=== PATIENT | male | born 1955 | race Caucasian/White ===

== ENCOUNTER 2016-07-09 17:40 | Emergency (ER) | payer MEDICARE ==
[2016-07-09 19:25] LABS: Bilirubin Negative (Negative); Blood, Urine Negative (Negative); Clarity Clear (Clear); Glucose, Urine (Dipstick) Negative (Negative); Leukocyte Negative (Negative); Nitrite Negative (Negative); Protein, Urine (Dipstick) Negative (Neg-Trace); Urobilinogen 0.2 mg/dL (0.2-1.0)
[2016-07-09 19:26] LABS: Specific Gravity, Urine 1.022 (1.002-1.036)
[2016-07-09 19:30] LABS: RBC/HPF None Seen HPF (0-3); WBC/HPF 0-3 HPF (0-3)
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
== END 2016-07-09 19:57 | disposition home or self-care (01) ==
LOC: MADERS 17:40
DX: M54.32 Sciatica, left side (principal); I10 Essential (primary) hypertension; F17.220 Nicotine dependence, chewing tobacco, uncomplicated; Z79.891 Long term (current) use of opiate analgesic; Z79.899 Other long term (current) drug therapy
CPT/HCPCS: 81001; 99283

== ENCOUNTER 2017-12-30 17:49 | Emergency (ER) | payer MEDICARE, OTHER, MEDICAID ==
[2017-12-30 19:10] LABS: PTT 26.5 SEC (22.9-36.1); Prothrombin Time 13.3 SEC (12.0-14.7)
[2017-12-30] MEDS ORDERED: Morphine 4 MG/ML VIAL ONE ×2 (19:47→21:48)
[2017-12-30] MEDS ORDERED: Ketorolac Tromethamine 30 MG/ML VIAL ONE (19:47)
[2017-12-30] MEDS ORDERED: Ondansetron ODT 4 MG TAB ONE (19:47)
[2017-12-30 20:03] LABS: Band 1 % (5-11); Hemoglobin 14.2 g/dL (14.0-18.0); Lymphocytes 22 % (21-51); MDiff Complete? YES; Mean Corpuscular HGB CONC 35.1 g/dL (32.0-36.0); Mean Corpuscular Hemoglobin 35.4 pg (27.0-31.0); Mean Corpuscular Volume 100.9 fL (78.0-98.0); Mean Platelet Volume 7.1 fL (7.4-10.4); Monocytes 4 % (0-10); Neutrophil 73 % (42-75); PLT Morphology Comment Appears Adequate; Platelet Count 221 thou/uL (130-400); RBC Distribution Width 12.1 % (11.5-14.5); Red Blood Cell (RBC) Count 4.01 mill/uL (4.70-6.10); White Blood Cell (WBC) Count 7.6 thou/uL (4.8-10.8)
[2017-12-30 20:08] LABS: ALT (SGPT) 27 U/L (8-55); AST (SGOT) 41 U/L (5-34); Alkaline Phosphatase 77 U/L (40-150); Anion Gap 18 mmol/L (10-20); BUN (Urea Nitrogen) 11 mg/dL (8.4-25.7); Bilirubin, Total 0.4 mg/dL (0.2-1.2); CK (CPK) 118 U/L (30-200); Calc. Creatinine Clearance 0 mL/min (70-130); Calcium 8.9 mg/dL (7.8-10.44); Carbon Dioxide 15 mmol/L (22-29); Chloride 109 mmol/L (98-107); Estimated GFR-MDRD 90; Glucose 91 mg/dL (70-105); Magnesium 2.2 mg/dL (1.6-2.6); Potassium 3.6 mmol/L (3.5-5.1); Sodium 138 mmol/L (136-145)
[2017-12-30 20:12] LABS: Troponin I Less than 0.010 ng/mL (< 0.028)
--- NOTE | 2017-12-30 20:13 | RAD ---
RIGHT SHOULDER THREE VIEWS: 12/30/2017 HISTORY: Pain. Trauma. Electrocution. COMPARISON: None. FINDINGS: Mild degenerative change of the right AC joint noted. No widening of the AC or CC interspace. No fr acture or dislocation. IMPRESSION: No acute findings. POS: CHUCK
--- NOTE | 2017-12-30 20:14 | RAD ---
RIGHT SCAPULA TWO VIEWS: 12/30/2017 HISTORY: Electrocution. Trauma. Pain. COMPARISON: None. FINDINGS: Mild degenerative change of the right acromioclavicular joint. No fracture. IMPRESSION: No acute findings. POS: CHUCK
--- NOTE | 2017-12-30 20:26 | RAD ---
FRONTAL RADIOGRAPH CHEST: 12/30/2017 HISTORY: Electrocution. Pain. COMPARISON: 11/21/2015 FINDINGS: No pneumothorax, pleural fluid, focal consolidation, or alveolar edema. Heart and mediastinal contou rs are stable. No acute findings. IMPRESSION: No acute findings. POS: CHUCK
== END 2017-12-30 21:58 | disposition home or self-care (01) ==
LOC: MADERS 17:49
DX: T75.4XXA Electrocution, initial encounter (principal); S40.011A Contusion of right shoulder, initial encounter; I10 Essential (primary) hypertension; F17.220 Nicotine dependence, chewing tobacco, uncomplicated; Z79.899 Other long term (current) drug therapy; W86.8XXA Exposure to other electric current, initial encounter
CPT/HCPCS: 71045; 80053; 82553; 83735; 83880; 84484; 85025; 85610; 85730; 93005; 94760; 96374; 96375; 96376; J1885; J2270; Q0162

== ENCOUNTER 2018-04-18 00:40 | Emergency (ER) | payer MEDICARE, OTHER, MEDICAID ==
[2018-04-18] MEDS ORDERED: Adacel (T-DAP) 0.5 ML VIAL ONE (01:01)
[2018-04-18] MEDS ORDERED: Lidocaine 2% w/Epinephrine 1:200K 20 ML VIAL ONE (01:01)
[2018-04-18] MEDS ORDERED: Triple Antibiotic Oint 1 GM Packet ONE (01:24)
[2018-04-18] MEDS ORDERED: Sodium Chloride Irrig Solution 250 ML BOT ONE (07:15)
== END 2018-04-18 01:54 | disposition home or self-care (01) ==
LOC: MADERS 00:40
DX: S81.812A Laceration without foreign body, left lower leg, initial encounter (principal); F17.220 Nicotine dependence, chewing tobacco, uncomplicated; Z79.891 Long term (current) use of opiate analgesic; Z79.899 Other long term (current) drug therapy; W26.9XXA Contact with unspecified sharp object(s), initial encounter
CPT/HCPCS: 12002; 90471; 90715; J2001

== ENCOUNTER 2018-05-07 04:46 | Emergency (ER) | payer MEDICARE, MEDICAID ==
[2018-05-07] MEDS ORDERED: Ketorolac Tromethamine 30 MG/ML VIAL ONE (05:55)
[2018-05-07] MEDS ORDERED: Acetaminophen 500 MG TAB ONE (05:55)
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
--- NOTE | 2018-05-07 08:42 | RAD ---
TWO VIEWS RIGHT HUMERUS: Indication: Tripped and fell with right arm pain. Comparison: None. FINDINGS: No acute fracture or subluxation is evident. IMPRESSION: No acute osseous abnormality. POS: BH
--- NOTE | 2018-05-07 08:45 | RAD ---
THREE VIEWS RIGHT RIBS: Indication: Tripped and fell with right sided rib pain. FINDINGS: The visualized right lung is clear. There is calcified granuloma of the right upper lobe. There is a healed fracture deformity involving the posterolateral right 8th rib. No acute displaced right sided rib fracture is evident. IMPRESSION: 1. No acute right sided rib fracture. 2. Healed right posterolateral 8th rib fracture. 3. Calcified granuloma in the right upper lobe. POS: BH
== END 2018-05-07 06:10 | disposition home or self-care (01) ==
LOC: MADERS 04:46
DX: S43.401A Unspecified sprain of right shoulder joint, initial encounter (principal); I10 Essential (primary) hypertension; F17.220 Nicotine dependence, chewing tobacco, uncomplicated; Z79.899 Other long term (current) drug therapy; W17.89XA Other fall from one level to another, initial encounter
CPT/HCPCS: 96372; J1885

== ENCOUNTER 2019-03-31 13:08 | Outpatient (CLI) | payer MEDICARE ==
--- NOTE | 2019-03-31 13:24 | RAD ---
EXAM: Chest 2 views: HISTORY: +PPD COMPARISON: 11/21/2015 FINDINGS: There is a normal-sized cardiomediastinal silhouette. There is no evidence of consolidation, mass, or pleural effusion. The bones are unremarkable. IMPRESSION: No evidence of acute cardiopulmonary disease
== END 2019-03-31 13:09 | disposition home or self-care (01) ==
LOC: MADRAD 13:08
PROVIDERS: ATTEND Internal Medicine Rheumatology
DX: R76.11 Nonspecific reaction to tuberculin skin test without active tuberculosis (principal)
CPT/HCPCS: 71046

== ENCOUNTER 2024-06-17 15:40 | Emergency (ER) | payer MEDICARE ==
[2024-06-17] MEDS ORDERED: Ketorolac Tromethamine 30 MG (1 mL) VIAL ONE (16:11)
== END 2024-06-17 16:57 | disposition home or self-care (01) ==
LOC: MADERS 15:40
DX: M70.22 Olecranon bursitis, left elbow (principal); I10 Essential (primary) hypertension; F17.220 Nicotine dependence, chewing tobacco, uncomplicated; Z55.6 Problems related to health literacy
CPT/HCPCS: 96372; 99283; J1885

== ENCOUNTER 2024-08-01 21:39 | Emergency (ER) | payer MEDICARE ==
[2024-08-01] MEDS ORDERED: Ketorolac Tromethamine 30 MG (1 mL) VIAL ONE (22:03)
== END 2024-08-01 23:15 | disposition home or self-care (01) ==
LOC: MADERS 21:39
DX: S50.02XA Contusion of left elbow, initial encounter (principal); I10 Essential (primary) hypertension; W01.198A Fall on same level from slipping, tripping and stumbling with subsequent striking against other object, initial encounter; Y93.01 Activity, walking, marching and hiking
CPT/HCPCS: 71100; 73080; J1885; 96372; 99283

== ENCOUNTER 2024-09-04 20:15 | Emergency (ER) | payer MEDICARE, MEDICAID ==
[2024-09-04] MEDS ORDERED: Clindamycin 150 MG CAP ONE (20:37)
== END 2024-09-04 20:46 | disposition home or self-care (01) ==
LOC: MADERS 20:15
DX: M70.22 Olecranon bursitis, left elbow (principal); I10 Essential (primary) hypertension; M06.9 Rheumatoid arthritis, unspecified; L40.52 Psoriatic arthritis mutilans; Z79.899 Other long term (current) drug therapy
CPT/HCPCS: 99283